=== PATIENT | female | born 1965 | race Caucasian/White ===

== ENCOUNTER 2017-07-23 11:23 | Emergency (ER) | payer OTHER ==
[~2017-07-23] VITALS: Ht 165.1 cm; Wt 63.0 kg
[~2017-07-23 11:23] MED LIST: PROTONIX20 MG PO
[2017-07-23 13:10] LABS: HEMATOCRIT 39.8 % (36.0-46.0); HEMOGLOBIN 14.1 G/DL (11.9-15.5); MCH 30.8 PG (29.0-34.0); MCHC 35.4 G/DL (30.0-36.0); MCV 86.9 FL (83-99); PLATELET COUNT 241 K/uL (156-360); RBC DIS.WIDTH-CV 11.9 % (11.8-14.6); RBC DIS.WIDTH-SD 37.9 % (39-53); RED BLOOD COUNT 4.58 M/uL (3.80-5.20); WHITE BLOOD COUNT 8.3 K/uL (4.1-10.2)
[2017-07-23 13:15] LABS: CHLORIDE 96 mEq/L (99-109); POTASSIUM 4.7 mEq/L (3.7-5.4); SODIUM 133 mEq/L (136-147)
[2017-07-23 13:16] LABS: GLUCOSE 121 mg/dL (70-99)
[2017-07-23 13:20] LABS: GFR ESTIMATE (CALCULATED) > 59 mL/min/
[2017-07-23 13:21] LABS: UREA NITROGEN (BUN) 22 mg/dL (9-23)
[2017-07-23 13:26] LABS: TROP-I INTERPRETATION NEGATIVE; TROPONIN-I < 0.01 ng/mL (0.0-0.30)
[2017-07-23 17:04] VITALS: BP 129/85
== END 2017-07-23 17:04 | disposition home or self-care (01) ==
LOC: EME 11:23
DX: R42 Dizziness and giddiness (principal); I10 Essential (primary) hypertension
CPT/HCPCS: 70450; 80048; 84484; 85027; 93005; 99281; 99285